=== PATIENT | male | born 1995 | race African-American/Black ===

== ENCOUNTER 2022-08-02 16:33 | Inpatient (IN) | payer OTHER ==
[2022-08-02 17:00] VITALS: BMI 32.8
[2022-08-02] MEDS ORDERED: IBUPROFEN 400 MG TABLET (FP) PO PRN (17:56)
[2022-08-02] MEDS ORDERED: BENZONATATE 200 MG CAPSULE PO PRN (17:56)
[2022-08-02] MEDS ORDERED: NICOTINE 10 MG CARTRIDGE (INHALER) IH PRN (17:56)
[2022-08-02] MEDS ORDERED: POLYETHYLENE GLYCOL (HEALTHYLAX) 3350 17 GM PACKET PO PRN (17:56)
[2022-08-02] MEDS ORDERED: IBUPROFEN 600 MG TABLET (FP) PO PRN (17:56)
[2022-08-02] MEDS ORDERED: MAGNESIUM HYDROX 2400MG/30ML ORAL SUSPENSION 30 ML CUP PO PRN (17:56)
[2022-08-02] MEDS ORDERED: MAG HYDROX/AL HYDROX/SIMETH 30 ML UNIT-DOSE CUP PO PRN (17:56)
[2022-08-02] MEDS ORDERED: AMMONIUM LACTATE 12% LOTION 225 GM BOTTLE TP PRN (17:56)
[2022-08-02] MEDS ORDERED: DICYCLOMINE HCL 10 MG CAPSULE PO PRN (17:56)
[2022-08-02] MEDS ORDERED: LOPERAMIDE HCL 2 MG CAPSULE PO PRN (17:56)
[2022-08-02] MEDS ORDERED: BENZOCAINE/MENTHOL (CHLORASEPTIC ) LOZENGE MM PRN (17:56)
[2022-08-02] MEDS ORDERED: guaiFENesin 600 MG TABLET.ER (FP) PO PRN (17:56)
[2022-08-02] MEDS ORDERED: COLLOIDAL OATMEAL 1 BAR EACH TP PRN (17:56)
[2022-08-02] MEDS ORDERED: NALOXONE HCL 0.4 MG/ML VIAL IM PRN (17:56)
[2022-08-02] MEDS ORDERED: ACETAMINOPHEN 325 MG TABLET (FP) PO PRN (17:56)
[2022-08-02] MEDS ORDERED: NALOXONE HCL (KLOXXADO) 8 MG SPRAY NS PRN (17:56)
[2022-08-02] MEDS ORDERED: chlordiazePOXIDE HCL 25 MG CAPSULE ONE (18:09)
[2022-08-02] MEDS: chlordiazePOXIDE HCL 25 MG CAPSULE PO SCH ×2 (18:14→23:07)
[2022-08-02] MEDS: ONDANSETRON *ODT* 4 MG TABLET SL PRN (18:47)
[2022-08-02] MEDS: MELATONIN 5 MG TABLETS PO SCH (23:15)
[2022-08-02] MEDS: THIAMINE HCL 100 MG TABLET (FP) PO SCH (23:16)
[2022-08-03] MEDS: chlordiazePOXIDE HCL 25 MG CAPSULE PO SCH ×4 (05:25→22:07)
[2022-08-03] MEDS: PRENATAL VITAMINS W/ FOLIC ACID TABLET (FP) PO SCH (10:39)
[2022-08-03 11:50] LABS: HEMATOCRIT 42.9 % (35.4-49); MCH 26.8 pg (25.7-33.7); MCHC 32.6 g/dl (32.0-35.9); MEAN CELL VOLUME 82.1 fl (80-96); MEAN PLT VOLUME 7.3 fl (7.5-11.1); PLATELET COUNT 291 10^3/uL (134-434); RBC 5.22 M/mm3 (4.00-5.60); RDW 14.6 % (11.9-15.9); WHITE BLOOD COUNT 7.6 K/mm3 (4.0-10.0)
[2022-08-03 12:01] LABS: CALCIUM 9.1 mg/dL (8.5-10.1)
[2022-08-03 12:02] LABS: ALBUMIN 2.9 g/dl (3.4-5.0); BLOOD UREA NITROGEN 7.5 mg/dL (7-18)
[2022-08-03 12:05] LABS: CREATININE 0.9 mg/dL (0.55-1.3)
[2022-08-03 12:06] LABS: BILIRUBIN,TOTAL 0.3 mg/dL (0.2-1); TOT PROT 6.2 g/dl (6.4-8.2)
[2022-08-03] MEDS ORDERED: chlordiazePOXIDE HCL 25 MG CAPSULE ONE (12:45)
[2022-08-03] MEDS ORDERED: chlordiazePOXIDE HCL 25 MG CAPSULE PO ONE (12:49)
[2022-08-03] MEDS: ONDANSETRON *ODT* 4 MG TABLET SL PRN (17:05)
[2022-08-03] MEDS ORDERED: TRIMETHOBENZAMIDE HCL 200MG/2ML INJ IM ONE (17:48)
[2022-08-03] MEDS: LACTULOSE 20 GM/30 ML UDC (FOR ORAL USE ONLY) PO SCH ×2 (18:45→22:07)
[2022-08-03] MEDS: THIAMINE HCL 100 MG TABLET (FP) PO SCH (22:07)
[2022-08-03] MEDS: MELATONIN 5 MG TABLETS PO SCH (22:10)
[2022-08-04] MEDS: chlordiazePOXIDE HCL 25 MG CAPSULE PO SCH ×4 (05:19→22:06)
[2022-08-04] MEDS: METHOCARBAMOL 500 MG TABLET PO PRN (10:35)
[2022-08-04] MEDS: LACTULOSE 20 GM/30 ML UDC (FOR ORAL USE ONLY) PO SCH ×4 (10:35→23:08)
[2022-08-04] MEDS: PRENATAL VITAMINS W/ FOLIC ACID TABLET (FP) PO SCH (10:35)
[2022-08-04] MEDS: NICOTINE POLACRILEX 2 MG GUM BUC PRN ×2 (17:34→22:10)
[2022-08-04] MEDS: THIAMINE HCL 100 MG TABLET (FP) PO SCH (22:06)
[2022-08-04] MEDS: MELATONIN 5 MG TABLETS PO SCH (22:07)
[2022-08-05] MEDS: chlordiazePOXIDE HCL 10 MG CAPSULE PO SCH ×4 (05:22→22:07)
[2022-08-05] MEDS: METHOCARBAMOL 500 MG TABLET PO PRN (10:38)
[2022-08-05] MEDS: PRENATAL VITAMINS W/ FOLIC ACID TABLET (FP) PO SCH (10:38)
[2022-08-05] MEDS: LACTULOSE 20 GM/30 ML UDC (FOR ORAL USE ONLY) PO SCH ×4 (10:39→22:09)
[2022-08-05] MEDS ORDERED: TRIMETHOBENZAMIDE HCL 200MG/2ML INJ IM PRN (10:42)
[2022-08-05] MEDS: FAMOTIDINE 20 MG TABLET PO SCH (11:16)
[2022-08-05] MEDS: NICOTINE POLACRILEX 2 MG GUM BUC PRN (17:40)
[2022-08-05] MEDS: THIAMINE HCL 100 MG TABLET (FP) PO SCH (22:07)
[2022-08-05] MEDS: MELATONIN 5 MG TABLETS PO SCH (22:09)
[2022-08-06] MEDS: chlordiazePOXIDE HCL 10 MG CAPSULE PO SCH ×2 (06:00→18:05)
[2022-08-06] MEDS: BISMUTH SUBSALICYLATE 524 MG/30 ML PO PRN ×2 (06:12→11:25)
[2022-08-06] MEDS: PRENATAL VITAMINS W/ FOLIC ACID TABLET (FP) PO SCH (11:05)
[2022-08-06] MEDS: LACTULOSE 20 GM/30 ML UDC (FOR ORAL USE ONLY) PO SCH ×3 (11:05→21:12)
[2022-08-06] MEDS: FAMOTIDINE 20 MG TABLET PO SCH (11:05)
[2022-08-06] MEDS: ONDANSETRON *ODT* 4 MG TABLET SL PRN (11:25)
[2022-08-06 18:00] VITALS: BP 107/56; PULSE 90; RESP 17; TEMP 97.3
[2022-08-07] MEDS ORDERED: chlordiazePOXIDE HCL 10 MG CAPSULE PO ONE (05:00)
== END 2022-08-06 20:20 | disposition left against medical advice (07) | DRG 770 ==
LOC: YASAS 16:33 → Y6N 18:37
PROVIDERS: ADMIT Allergy & Immunology; ATTEND Surgery
PROC: HZ2ZZZZ Detoxification Services for Substance Abuse Treatment (ICD-10-PCS; principal; 2022-08-02)
DX: F10.230 Alcohol dependence with withdrawal, uncomplicated (principal); F14.20 Cocaine dependence, uncomplicated; F17.210 Nicotine dependence, cigarettes, uncomplicated; F25.9 Schizoaffective disorder, unspecified; F31.9 Bipolar disorder, unspecified; F43.10 Post-traumatic stress disorder, unspecified; R11.2 Nausea with vomiting, unspecified; R79.89 Other specified abnormal findings of blood chemistry; Z62.810 Personal history of physical and sexual abuse in childhood; E66.9 Obesity, unspecified; Z68.32 Body mass index [BMI] 32.0-32.9, adult
CPT/HCPCS: 36415; 80053; 82140; 83036; 85027; 86780; C9803-CS; Q0162; U0003; U0005

== ENCOUNTER 2022-09-25 11:43 | Inpatient (IN) | payer OTHER ==
[2022-09-25 12:21] VITALS: BMI 36.5
[2022-09-25] MEDS ORDERED: COLLOIDAL OATMEAL 1 BAR EACH TP PRN (12:39)
[2022-09-25] MEDS ORDERED: BENZOCAINE/MENTHOL (CHLORASEPTIC ) LOZENGE MM PRN (12:39)
[2022-09-25] MEDS ORDERED: AMMONIUM LACTATE 12% LOTION 225 GM BOTTLE TP PRN (12:39)
[2022-09-25] MEDS ORDERED: P-EPHED 60MG/TRIPROLIDI 2.5MG TABLET PO PRN (12:39)
[2022-09-25] MEDS ORDERED: BENZONATATE 200 MG CAPSULE PO PRN (12:39)
[2022-09-25] MEDS ORDERED: NALOXONE HCL (KLOXXADO) 8 MG SPRAY NS PRN (12:39)
[2022-09-25] MEDS ORDERED: IBUPROFEN 400 MG TABLET (FP) PO PRN (12:39)
[2022-09-25] MEDS ORDERED: IBUPROFEN 600 MG TABLET (FP) PO PRN (12:39)
[2022-09-25] MEDS ORDERED: ACETAMINOPHEN 325 MG TABLET (FP) PO PRN (12:39)
[2022-09-25] MEDS ORDERED: POLYETHYLENE GLYCOL (HEALTHYLAX) 3350 17 GM PACKET PO PRN (12:39)
[2022-09-25] MEDS ORDERED: LOPERAMIDE HCL 2 MG CAPSULE PO PRN (12:39)
[2022-09-25] MEDS ORDERED: guaiFENesin 600 MG TABLET.ER (FP) PO PRN (12:39)
[2022-09-25] MEDS ORDERED: MAGNESIUM HYDROX 2400MG/30ML ORAL SUSPENSION 30 ML CUP PO PRN (12:39)
[2022-09-25] MEDS ORDERED: NALOXONE HCL 0.4 MG/ML VIAL IM PRN (12:39)
[2022-09-25 20:31] LABS: EPI CELLS 2 /uL (0-25.1); HYALINE CASTS 0 /uL (0-3.1); PH,URINE 6.5 (5.0-8.0); URINE APPEARANCE CLEAR; URINE BACTERIA 2 /uL (0-1359); URINE BILIRUBIN NEGATIVE (NEGATIVE); URINE COLOR YELLOW; URINE GLUCOSE (UA) NEGATIVE (NEGATIVE); URINE KETONE NEGATIVE (NEGATIVE); URINE LEUK ESTERASE NEGATIVE (NEGATIVE); URINE NITRITE NEGATIVE (NEGATIVE); URINE PROTEIN NEGATIVE (NEGATIVE); URINE RBC 35 /uL (0-23.9); URINE WBC 3 /uL (0-25.8)
[2022-09-25] MEDS: THIAMINE HCL 100 MG TABLET (FP) PO SCH (21:13)
[2022-09-26] MEDS: PRENATAL VITAMINS W/ FOLIC ACID TABLET (FP) PO SCH (10:23)
[2022-09-26] MEDS: MELATONIN 5 MG TABLETS PO PRN (21:34)
[2022-09-26] MEDS: THIAMINE HCL 100 MG TABLET (FP) PO SCH (21:34)
[2022-09-27] MEDS: PRENATAL VITAMINS W/ FOLIC ACID TABLET (FP) PO SCH (10:16)
[2022-09-27 16:54] LABS: HEMATOCRIT 43.6 % (35.4-49); HEMOGLOBIN 14.5 GM/dL (11.7-16.9); MCH 27.6 pg (25.7-33.7); MCHC 33.2 g/dl (32.0-35.9); MEAN CELL VOLUME 83.2 fl (80-96); MEAN PLT VOLUME 7.9 fl (7.5-11.1); PLATELET COUNT 254 10^3/uL (134-434); RBC 5.24 M/mm3 (4.00-5.60); RDW 14.4 % (11.9-15.9); WHITE BLOOD COUNT 12.1 K/mm3 (4.0-10.0)
[2022-09-27 16:55] LABS: POTASSIUM 4.1 mmol/L (3.5-5.1)
[2022-09-27 16:57] LABS: BLOOD UREA NITROGEN 6.9 mg/dL (7-18)
[2022-09-27 16:58] LABS: ALBUMIN 3.3 g/dl (3.4-5.0)
[2022-09-27 17:01] LABS: CREATININE 0.7 mg/dL (0.55-1.3)
[2022-09-27 17:02] LABS: BILIRUBIN,TOTAL 0.2 mg/dL (0.2-1); TOT PROT 6.8 g/dl (6.4-8.2)
[2022-09-27 17:25] LABS: SYPHILIS W/ RPR CONF NON-REACTIVE (NONREACTIVE)
[2022-09-27] MEDS: THIAMINE HCL 100 MG TABLET (FP) PO SCH (21:23)
[2022-09-27] MEDS: MELATONIN 5 MG TABLETS PO PRN (21:23)
[2022-09-28] MEDS: PRENATAL VITAMINS W/ FOLIC ACID TABLET (FP) PO SCH (09:55)
[2022-09-28] MEDS: MAG HYDROX/AL HYDROX/SIMETH 30 ML UNIT-DOSE CUP PO PRN ×2 (12:28→22:00)
[2022-09-28] MEDS: MELATONIN 5 MG TABLETS PO PRN (21:59)
[2022-09-28] MEDS: THIAMINE HCL 100 MG TABLET (FP) PO SCH (22:00)
[2022-09-29] MEDS: PRENATAL VITAMINS W/ FOLIC ACID TABLET (FP) PO SCH (09:48)
[2022-09-29] MEDS: DIVALPROEX SODIUM 250 MG TABLET E.C. PO SCH ×2 (11:04→21:22)
[2022-09-29] MEDS: MAG HYDROX/AL HYDROX/SIMETH 30 ML UNIT-DOSE CUP PO PRN (16:20)
[2022-09-29] MEDS: MELATONIN 5 MG TABLETS PO PRN (21:22)
[2022-09-29] MEDS: THIAMINE HCL 100 MG TABLET (FP) PO SCH (21:22)
[2022-09-30] MEDS: hydrOXYzine PAMOATE 25 MG CAPSULE (FP) PO PRN (06:23)
[2022-09-30] MEDS: DIVALPROEX SODIUM 250 MG TABLET E.C. PO SCH ×2 (10:20→21:08)
[2022-09-30] MEDS: PRENATAL VITAMINS W/ FOLIC ACID TABLET (FP) PO SCH (10:22)
[2022-09-30] MEDS: THIAMINE HCL 100 MG TABLET (FP) PO SCH (21:08)
[2022-09-30] MEDS: MELATONIN 5 MG TABLETS PO PRN (21:08)
[2022-10-01] MEDS: DIVALPROEX SODIUM 250 MG TABLET E.C. PO SCH ×2 (09:48→21:17)
[2022-10-01] MEDS: PRENATAL VITAMINS W/ FOLIC ACID TABLET (FP) PO SCH (09:48)
[2022-10-01] MEDS ORDERED: BISMUTH SUBSALICYLATE 524 MG/30 ML PO PRN (10:58)
[2022-10-01] MEDS: hydrOXYzine PAMOATE 25 MG CAPSULE (FP) PO PRN (21:17)
[2022-10-01] MEDS: MELATONIN 5 MG TABLETS PO PRN (21:17)
[2022-10-01] MEDS: THIAMINE HCL 100 MG TABLET (FP) PO SCH (21:17)
[2022-10-02] MEDS: PRENATAL VITAMINS W/ FOLIC ACID TABLET (FP) PO SCH (11:13)
[2022-10-02] MEDS: DIVALPROEX SODIUM 250 MG TABLET E.C. PO SCH ×2 (11:13→21:36)
[2022-10-02] MEDS: hydrOXYzine PAMOATE 25 MG CAPSULE (FP) PO PRN (21:37)
[2022-10-02] MEDS: MELATONIN 5 MG TABLETS PO PRN (21:37)
[2022-10-02] MEDS: THIAMINE HCL 100 MG TABLET (FP) PO SCH (21:37)
[2022-10-03] MEDS: DIVALPROEX SODIUM 250 MG TABLET E.C. PO SCH ×2 (09:17→21:22)
[2022-10-03] MEDS: PRENATAL VITAMINS W/ FOLIC ACID TABLET (FP) PO SCH (09:17)
[2022-10-03] MEDS: THIAMINE HCL 100 MG TABLET (FP) PO SCH (21:23)
[2022-10-03] MEDS: hydrOXYzine PAMOATE 25 MG CAPSULE (FP) PO PRN (21:23)
[2022-10-03] MEDS: MELATONIN 5 MG TABLETS PO PRN (21:23)
[2022-10-04] MEDS: DIVALPROEX SODIUM 250 MG TABLET E.C. PO SCH ×2 (10:05→21:08)
[2022-10-04] MEDS: PRENATAL VITAMINS W/ FOLIC ACID TABLET (FP) PO SCH (10:05)
[2022-10-04] MEDS: THIAMINE HCL 100 MG TABLET (FP) PO SCH (21:09)
[2022-10-04] MEDS: hydrOXYzine PAMOATE 25 MG CAPSULE (FP) PO PRN (21:09)
[2022-10-04] MEDS: MELATONIN 5 MG TABLETS PO PRN (21:09)
[2022-10-05] MEDS: DIVALPROEX SODIUM 250 MG TABLET E.C. PO SCH ×2 (10:06→21:22)
[2022-10-05] MEDS: PRENATAL VITAMINS W/ FOLIC ACID TABLET (FP) PO SCH (10:06)
[2022-10-05] MEDS: THIAMINE HCL 100 MG TABLET (FP) PO SCH (21:22)
[2022-10-05] MEDS: MELATONIN 5 MG TABLETS PO PRN (21:22)
[2022-10-05] MEDS: hydrOXYzine PAMOATE 25 MG CAPSULE (FP) PO PRN (21:23)
[2022-10-06] MEDS: PRENATAL VITAMINS W/ FOLIC ACID TABLET (FP) PO SCH (10:16)
[2022-10-06] MEDS: DIVALPROEX SODIUM 250 MG TABLET E.C. PO SCH ×2 (10:16→21:17)
[2022-10-06] MEDS: THIAMINE HCL 100 MG TABLET (FP) PO SCH (21:17)
[2022-10-06] MEDS: MELATONIN 5 MG TABLETS PO PRN (21:17)
[2022-10-07] MEDS: PRENATAL VITAMINS W/ FOLIC ACID TABLET (FP) PO SCH (09:58)
[2022-10-07] MEDS: DIVALPROEX SODIUM 250 MG TABLET E.C. PO SCH ×2 (09:58→21:33)
[2022-10-07] MEDS: hydrOXYzine PAMOATE 25 MG CAPSULE (FP) PO PRN ×2 (13:55→21:33)
[2022-10-07] MEDS: THIAMINE HCL 100 MG TABLET (FP) PO SCH (21:34)
[2022-10-07] MEDS: MELATONIN 5 MG TABLETS PO PRN (21:34)
[2022-10-08] MEDS: PRENATAL VITAMINS W/ FOLIC ACID TABLET (FP) PO SCH (10:23)
[2022-10-08] MEDS: DIVALPROEX SODIUM 250 MG TABLET E.C. PO SCH ×2 (10:24→21:13)
[2022-10-08] MEDS: THIAMINE HCL 100 MG TABLET (FP) PO SCH (21:13)
[2022-10-08] MEDS: hydrOXYzine PAMOATE 25 MG CAPSULE (FP) PO PRN (21:14)
[2022-10-09] MEDS: DIVALPROEX SODIUM 250 MG TABLET E.C. PO SCH ×2 (09:52→21:16)
[2022-10-09] MEDS: PRENATAL VITAMINS W/ FOLIC ACID TABLET (FP) PO SCH (09:53)
[2022-10-09] MEDS: THIAMINE HCL 100 MG TABLET (FP) PO SCH (21:16)
[2022-10-09] MEDS: hydrOXYzine PAMOATE 25 MG CAPSULE (FP) PO PRN (21:16)
[2022-10-09] MEDS: MELATONIN 5 MG TABLETS PO PRN (21:16)
[2022-10-10] MEDS: PRENATAL VITAMINS W/ FOLIC ACID TABLET (FP) PO SCH (09:17)
[2022-10-10] MEDS: DIVALPROEX SODIUM 250 MG TABLET E.C. PO SCH ×2 (09:18→21:13)
[2022-10-10] MEDS: MELATONIN 5 MG TABLETS PO PRN (21:13)
[2022-10-10] MEDS: THIAMINE HCL 100 MG TABLET (FP) PO SCH (21:13)
[2022-10-10] MEDS: hydrOXYzine PAMOATE 25 MG CAPSULE (FP) PO PRN (21:14)
[2022-10-11 06:52] VITALS: PULSE 105; RESP 18
[2022-10-11] MEDS: PRENATAL VITAMINS W/ FOLIC ACID TABLET (FP) PO SCH (10:22)
[2022-10-11] MEDS: DIVALPROEX SODIUM 250 MG TABLET E.C. PO SCH ×2 (10:22→21:12)
[2022-10-11] MEDS: MELATONIN 5 MG TABLETS PO PRN (21:13)
[2022-10-11] MEDS: hydrOXYzine PAMOATE 25 MG CAPSULE (FP) PO PRN (21:13)
[2022-10-11] MEDS: THIAMINE HCL 100 MG TABLET (FP) PO SCH (21:13)
[2022-10-12 07:11] VITALS: BP 154/69; TEMP 97.5
[2022-10-12] MEDS: PRENATAL VITAMINS W/ FOLIC ACID TABLET (FP) PO SCH (09:56)
[2022-10-12] MEDS: DIVALPROEX SODIUM 250 MG TABLET E.C. PO SCH (09:56)
== END 2022-10-12 10:16 | disposition home or self-care (01) | DRG 772 ==
LOC: YASAS 11:43 → Y3W 12:44
PROVIDERS: ADMIT Allergy & Immunology; ATTEND Psychiatry & Neurology Pain Medicine
PROC: HZ42ZZZ Group Counseling for Substance Abuse Treatment, Cognitive-Behavioral (ICD-10-PCS; principal; 2022-09-25)
DX: F10.20 Alcohol dependence, uncomplicated (principal); F14.20 Cocaine dependence, uncomplicated; F17.210 Nicotine dependence, cigarettes, uncomplicated; F19.282 Other psychoactive substance dependence with psychoactive substance-induced sleep disorder; F41.8 Other specified anxiety disorders; F43.10 Post-traumatic stress disorder, unspecified; R19.7 Diarrhea, unspecified; E66.9 Obesity, unspecified; Z62.810 Personal history of physical and sexual abuse in childhood; Z68.36 Body mass index [BMI] 36.0-36.9, adult; Z59.02 Unsheltered homelessness
CPT/HCPCS: 36415; 80053; 80164; 81003; 85027; 86780; 86803; 93005; 93010; C9803-CS; U0003; U0005